=== PATIENT | female | born 1955 | race African-American/Black ===

== ENCOUNTER → 2021-04-27 | Outpatient (CLI) | payer MEDICARE, OTHER ==
[~2021-04-27] MED LIST: DYMI137S NARES; FLON1SPR NARES; FLUT44IN INH; LISI40TA4 PO; PROAAER10 INH; WARF-20 PO; WARF4TAB51 PO
--- NOTE | 2021-04-27 13:52 | REP ---
INDICATION: ATRAUMATIC PAIN RIGHT WRIST. COMPARISON: None. TECHNIQUE: Four views FINDINGS: There is no acute fracture or destructive osseous lesion. IMPRESSION: Within normal limits for age. <Electronically signed by Oumar Yousif > 04/27/21 [id number]
== END ==
LOC: M WUC 13:19
PROVIDERS: ATTEND Physician Assistant
DX: M25.531 Pain in right wrist (principal)

== ENCOUNTER 2021-05-04 12:07 | Emergency (ER) | payer MEDICARE, OTHER ==
[~2021-05-04] VITALS: Ht 167.6 cm; Wt 103.6 kg
--- NOTE | 2021-05-04 14:13 | REP ---
INDICATION: SWELLING. COMPARISON: None. TECHNIQUE: Multiple ultrasonographic images of the deep venous structures of the right upper extremity were obtained to rule out deep venous thrombosis. The contralateral subclavian vein was also interrogated in a limited fashion for comparison. FINDINGS: There is no abnormal echogenic material seen in any of the visualized deep venous structures of the right upper extremity. Coaptation where applicable is appropriate throughout. IMPRESSION: Negative exam. <Electronically signed by Oumar Yousif > 05/04/21 [id number]
[2021-05-04] MEDS ORDERED: WARF4TAB51 PO (15:17)
[2021-05-04] MEDS ORDERED: LISI40TA4 PO (15:17)
[2021-05-04] MEDS ORDERED: DYMI137S NARES (15:17)
[2021-05-04] MEDS ORDERED: FLON1SPR NARES (15:17)
[2021-05-04] MEDS ORDERED: FLUT44IN INH (15:17)
[2021-05-04] MEDS ORDERED: PROAAER10 INH (15:17)
[2021-05-04] MEDS ORDERED: WARF-20 PO (15:17)
[2021-05-04 16:16] VITALS: BP 140/90
== END 2021-05-04 16:21 | disposition home or self-care (01) ==
LOC: M ED 12:07
DX: M79.601 Pain in right arm (principal); D68.2 Hereditary deficiency of other clotting factors; Z86.718 Personal history of other venous thrombosis and embolism; Z86.73 Personal history of transient ischemic attack (TIA), and cerebral infarction without residual deficits; Z79.899 Other long term (current) drug therapy; Z79.01 Long term (current) use of anticoagulants; Z88.0 Allergy status to penicillin; Z88.1 Allergy status to other antibiotic agents; Z88.2 Allergy status to sulfonamides; Z88.8 Allergy status to other drugs, medicaments and biological substances; Z91.018 Allergy to other foods; Z91.041 Radiographic dye allergy status